=== PATIENT | male | born 1965 | race Caucasian/White ===

== ENCOUNTER 2016-08-24 12:52 | Inpatient (IN) | payer OTHER ==
--- NOTE | ~2016-08-24 | CR257 ---
[facility] A Service of [facility] RADIOLOGY TEXT RESULTS PATIENT: CHARLES LEY LOCATION: [facility] 465-01 : 66 UNIT #: [id number] AGE: [address]: Mary Steward MD SEX: M ORDER DR: [id number] [facility] [address] [facility]. [place], [place] [address] [id number] I MR#: [id number] Acc #: [id number] NAME: CHARLES LEY : 1965 SEX: M STUDY DATE/TIME: 08/24/2016 UNIT: [facility] ROOM: [facility] STUDY DESCRIPTION: CR Toe 2 Views 3Rd Rt Attending Physician: Parmjit Luz M.D. Ordering Physician: Liya Chapman Pa-C Primary Care Physician: Primary Care Physician No MEDICAL IMAGING REPORT This report is preliminary unless electronic signature is present EXAM Right toes, 08/24/2016 1239 hours. CLINICAL HISTORY Patient suffered injury on 07/21/2016 with wounds on toes which are nonhealing. Redness and pain. COMPARISON Right foot film 07/21/2016 FINDINGS AP, lateral and oblique views are performed. The overall bone density is normal. No fracture is seen in the metatarsals. There is thickening of the nails and increased soft tissue density at the distal aspect of the second and third toes where there is a subcutaneous lucency suggesting open wounds. This represents a change from the prior study. There is a lucent new defect in the distal tip of the distal phalanx of the third toe highly suspicious for osteomyelitis. No definite bony destruction is demonstrated at the second toe. IMPRESSION Soft tissue swelling of the second and third toes with lucency in the soft tissue of the distal tip of the third toe extending into lucency seen at the tuft of the distal phalanx which appears to be new. This is concerning for osteomyelitis. No definite fracture or bony destruction seen at the second toe. Dictated by... Aurora Garcia M.D. [facility] A Service of [facility] RADIOLOGY TEXT RESULTS PATIENT: CHARLES LEY LOCATION: [facility] 465-01 : [birth year] UNIT #: [id number] AGE: [address]: Mary Steward MD SEX: M ORDER DR: THIS IS AN ELECTRONICALLY VERIFIED REPORT Aurora Garcia M.D. at 08/25/2016 9:38 AM Kyler TD: 08/24/2016 20:10 JOB #: [id number] MEDICAL IMAGING REPORT Page 1 of 1 COPY
--- NOTE | ~2016-08-24 | HP ---
Unit #: [id number] #: [id number] Patient: CHARLES LEY [id number] [address] [address] [id number] MR#: [id number] NAME: CHARLES LEY ROOM: Age: 50 Sex: M Admission Date: 08/24/2016 : 1965 Attending Physician: Liya Chapman Pa-C Primary Care Physician: No Primary Care Physician HISTORY AND PHYSICAL CHIEF COMPLAINT Right foot injury. HISTORY OF PRESENT ILLNESS The patient is a 50-year-old man with a history of hypertension, chronic obstructive pulmonary disease, obstructive sleep apnea, chronic pain and seizure disorder. He presented to the emergency room with pain in the right third toe. The patient was recently discharged from the hospital a month ago with an incision and drainage of the second and fifth toe ulceration. The patient was discharged on Bactrim and recommended to follow up as an outpatient. However, the patient stated that the special forces engineer sergeant's office is [facility] and he was given an appointment on 08/05/2016. The patient could not get transportation to see the special forces engineer sergeant and has not been followed up. The patient presented to the emergency room complaining of worsening pain in the third toe. The patient had an x-ray that shows lucency in the distal third of the toe, concerning for osteomyelitis. The patients' creatinine is up to 2.2. He has been admitted for the above reasons. PAST MEDICAL HISTORY 1. History of chronic obstructive pulmonary disease. 2. Hypertension. 3. Obstructive sleep apnea. 4. Chronic back pain. PAST SURGICAL HISTORY Bronchoscopy. SOCIAL HISTORY The patient lives with his . He smokes a pack of cigarettes daily. He said that he has cut back from two packs daily. There is no alcohol or any illicit drug abuse. He is on disability. FAMILY HISTORY Positive for breast cancer in mother. ALLERGIES Morphine and tramadol. HOME MEDICATIONS 1. Combivent. 2. Gabapentin. 3. Seroquel. 4. Lopressor. Unit #: [id number] #: [id number] Patient: CHARLES LEY 5. Hydrochlorothiazide. 6. Lipitor. 7. Lisinopril. 8. Aspirin. REVIEW OF SYSTEMS Fourteen point review of systems was performed and only positive findings are described above. The remaining are negative. PHYSICAL EXAMINATION GENERAL: The patient is lying on the bed, not in acute distress. VITALS: Temperature 97.8, pulse 89, respiratory rate 14, blood pressure 196/57, saturations 100% on room air. HEENT: Atraumatic, normocephalic. Pupils equal, round and reactive to light and accommodation. Dry mucous membranes. Extraocular movements are intact. NECK: Supple. Trachea midline. LUNGS: Clear to auscultation bilaterally. HEART: Regular rate and rhythm. ABDOMEN: Soft. Positive bowel sounds. EXTREMITIES: The patient has an (1)____ on the right side distal amputation with surround erythema, cellulitis and tenderness to touch. NEUROLOGIC: Awake and oriented. No gross focal motor deficits. DIAGNOSTIC STUDIES IMAGING: X-ray of the foot shows lucency in the third distal toe, concerning for the osteomyelitis. LABORATORY: Glucose 107, BUN 24, creatinine 2.2, sodium 137, potassium 3.1. Chloride 96, bicarb 28, calcium 9.8, total protein 8.4, albumin 4.5, AST 22, ALT 13, alkaline phosphatase 64, lactic acid 1.6, INR 1. White blood cell count 8.1, hemoglobin 14.6, hematocrit 43.8, platelets 260, ESR 42, CRP 1.9. ASSESSMENT 1. OCTAVIANO. 2. Third toe wound, concerning for osteomyelitis. 3. Cellulitis. PLAN Admit the patient to observation with telemetry. Continue with IV antibiotics with Ancef. The patient has cultures from the last month with MSSA. Will reconsult podiatry for amputation or debridement of the infected toe. Repeat labs. Potassium has been replaced by the emergency room. Will continue with IV fluids, normal saline at 75 mL per hour for OCTAVIANO. Hold the hydrochlorothiazide. Further recommendations will follow. Dictated by Rivas Chakraborty TD: 08/24/2016 15:16 JOB #: [id number] Unit #: [id number] #: [id number] Patient: CHARLES LEY HISTORY AND PHYSICAL Page 1 of 1 X X HISTORY AND PHYSICAL
--- NOTE | ~2016-08-24 | EKG ---
PATIENT: CHARLES LEY UNIT #: [id number] Ventricular Rate: 71 BPM Atrial Rate: 71 BPM P-R Interval: 208 ms QRS Duration: 124 ms Q-T Interval: 408 ms QTC Calculation(Bezet): 443 ms P Carson: 66 degrees Calculated R Carson: -32 degrees Calculated T Carson: 26 degrees Diagnosis Line: Normal sinus rhythm Diagnosis Line: Left axis deviation Diagnosis Line: Left ventricular hypertrophy with QRS widening Diagnosis Line: Abnormal ECG Diagnosis Line: When compared with ECG of 21-JUL-2016 12:09, Diagnosis Line: Premature atrial complexes are no longer Present Diagnosis Line: QRS duration has increased Diagnosis Line: Confirmed by APURVA STACY MD ([id number]) on 08/27/2016 Diagnosis Line: 9:35:34 AM INTERPRETING MD: TAWANNA KANG
--- NOTE | ~2016-08-24 | US136 ---
[facility] A Service of [facility] RADIOLOGY TEXT RESULTS PATIENT: CHARLES LEY LOCATION: [facility] 465-01 : 66 UNIT #: [id number] AGE: [address]: Mary Steward MD SEX: M ORDER DR: [id number] [facility] [address] [facility]. [place], [place] [address] [id number] I MR#: [id number] Acc #: [id number] NAME: CHARLES LEY : 1965 SEX: M STUDY DATE/TIME: 08/25/2016 9:23 UNIT: [facility] ROOM: [facility] STUDY DESCRIPTION: US U/L Ext Art Study Ltd Bilat Attending Physician: Mary Steward M.D. Ordering Physician: Mary Steward M.D. Primary Care Physician: No Primary Care Physician MEDICAL IMAGING REPORT This report is preliminary unless electronic signature is present EXAM Ankle-brachial indices INDICATION 50-year-old male with hypertension. Bilateral lower extremity claudication. Ulcerations in the right foot. Open wound right foot for a few days. FINDINGS Brachial pressure is 135. The DEE on the right is 1.01 and the DEE on the left is 1.17. The toe brachial indices are 0.92 on the right and 0.95 on the left. IMPRESSION Normal ankle-brachial indices. Dictated by... Cade Castano M.D. THIS IS AN ELECTRONICALLY VERIFIED REPORT Cade Castano M.D. at 08/26/2016 8:38 AM MARTINEZ/sherice TD: 08/25/2016 15:47 JOB #: [id number] MEDICAL IMAGING REPORT Page 1 of 1 COPY
--- NOTE | ~2016-08-24 | DS ---
Unit #: [id number] #: [id number] Patient: CHARLES SHANE [id number] [address] [address] [id number] I MR#: [id number] NAME: CHARLES SHANE. ROOM: 465 Age: 50 Sex: M Admission Date: 08/24/2016 : 1965 Discharge Date: 08/27/2016 Attending Physician: Mary Steward M.D. DISCHARGE SUMMARY PRIMARY CARE PROVIDER None. PRINCIPAL DIAGNOSES 1. Osteomyelitis of right 3rd toe, distal phalanx, status post amputation, causative organism is most likely methicillin sensitive Staphylococcus aureus. 2. Acute kidney injury on chronic kidney disease, NSAID induced, discharge creatinine 1.6, baseline creatinine 1.3. 3. Right great toe ulcer with granulation. 4. Hypertension. 5. Peripheral neuropathy. 6. Tobaccoism. 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 PROCEDURES 1. Amputation of distal phalanx of right great toe. This occurred without complication. 2. X-ray of right 3rd toe on 08/24/2016 with soft tissue swelling of the 2nd and 3rd toes with lucency in the soft tissue at the distal tip of the 3rd toe concerning for osteomyelitis. 3. Bilateral lower extremity ankle-brachial indices, which were normal. 4. MRI of right foot without contrast on 08/25/2016 with soft tissue cellulitis of the distal 3rd toe. There is abnormal marrow edema and marrow replacement of the distal phalanx of the 3rd toe consistent with osteomyelitis. There is a lobulated and serpiginous cystic structure along the dorsal aspect of the 4th metatarsal, felt to be ganglion cyst. CLINICAL HISTORY AND HOSPITAL COURSE Mr. Shane is a very nice 50-year-old male, who presents to the emergency department with increasing right 3rd toe wound. Please refer to H and P for further details. X-ray of the foot was done in the emergency department. There were concerns about underlying osteomyelitis; however, I will note the patient had a normal white blood cell count and remained afebrile. He was also found to have an elevated creatinine of 2.2. He was subsequently admitted. In regard to the patient's toe osteomyelitis, he was placed on empiric vancomycin and Zosyn. White blood cell count remained normal throughout hospitalization. He remained afebrile. Orthopedics was consulted, and the patient subsequently underwent amputation of the distal phalanx of the Unit #: [id number] #: [id number] Patient: CHARLES SHANE right 3rd toe, and postoperatively, had done well with the exception of some pain. No cultures were obtained and likely would have been polymicrobial; however, the patient did have cultures of his feet done in 07/2016 revealing methicillin sensitive Staph aureus. This is most likely the causative organism. I will change him to Keflex upon discharge. In regard to the patient's acute kidney injury, he was placed on IV fluids. However, he admits to me that he was taking some NSAIDs at home, and this was most likely the cause. Creatinine has decreased to 1.6, which is very near patient's baseline, and I think creatinine can be followed up as an outpatient. The patient has otherwise remained stable. He will be discharged home later today. DISCHARGE CONDITION Stable. DISCHARGE STATUS Discharged to home. DISCHARGE MEDICATIONS Combivent nebulizer treatments 3 mL q.i.d. p.r.n. for shortness of breath; Neurontin 800 mg t.i.d.; Seroquel 50 mg at bedtime; metoprolol tartrate 25 mg b.i.d.; Lipitor 40 mg at bedtime; hydralazine 50 mg p.o. t.i.d.; aspirin 81 mg daily; Percocet 10/325 one tablet p.o. q.4 hours p.r.n. for pain, number given 60; and Keflex 500 mg p.o. t.i.d. for 5 days. For now, I am discontinuing lisinopril despite the patient's chronic kidney disease. It may have been a contributing factor in elevated creatinine, and this can be re-evaluated by primary care physician as an outpatient. DISCHARGE INSTRUCTIONS The patient is to be weightbearing as tolerated in his postop shoe on the right foot with crutches. He is to decrease his tobacco use, which he is currently working on. He should follow a heart-healthy diet. FOLLOWUP The patient will follow up Dr. Heredia in 10 to 14 days. He should follow up with the primary care physician in approximately 2 weeks and have repeat BMP at that time and re-evaluation of blood pressure. Dictated by... Mary Steward M.D. SACHIN/helen TD: 08/28/2016 06:19 JOB #: [id number] Unit #: [id number] #: [id number] Patient: CHARLES SHANE DISCHARGE SUMMARY Page 1 of 1 X Mary Steward MD X DISCHARGE SUMMARY
--- NOTE | ~2016-08-24 | MR61 ---
[facility] A Service of [place] [facility] RADIOLOGY TEXT RESULTS PATIENT: CHARLES LEY LOCATION: [facility] 465-01 : 67 UNIT #: [id number] AGE: [address]: Mary Steward MD SEX: M ORDER DR: [id number] [facility] [address] [place], [place] [address] [id number] I MR#: [id number] Acc #: [id number] NAME: CHARLES LEY : 1965 SEX: M STUDY DATE/TIME: 08/25/2016 12:40 UNIT: [facility] ROOM: [facility] STUDY DESCRIPTION: MR Foot Wo Contrast Rt Attending Physician: Mary Steward M.D. Ordering Physician: Mary Steward M.D. Primary Care Physician: No Primary Care Physician MRI CENTER REPORT This report is preliminary unless electronic signature is present. EXAM Right foot MRI without contrast 08/25/2016 HISTORY 50-year-old male with right third toe pain since 07/16/2016. Third toenail removal ER yesterday. Order states infection, evaluate for osteomyelitis. COMPARISON Right third toe x-rays 08/24/2016. TECHNIQUE Routine unenhanced multiplanar, multisequence high field MR imaging of the right forefoot was performed. FINDINGS There are postsurgical changes from removal of the third toenail. This is associated with mild soft tissue inflammation at the distal aspect of the third toe. There is abnormal marrow edema and marrow replacement in the third distal phalanx, most consistent with osteomyelitis. No drainable soft tissue fluid collection to suggest abscess. No joint effusion to suggest septic arthritis. Flexor and extensor tendons are unremarkable. Incidental note is made of a serpiginous, lobulated structure along the dorsal aspect of the fourth metatarsal. This measures approximately 1.4 x 1.7 cm in cross section and at least 6.6 cm in length. This is partially imaged and could represent a ganglion cyst versus vascular malformation. This is of uncertain clinical significance. There is mild generalized edema and diffuse fatty atrophy noted throughout the intrinsic musculature of the forefoot, likely secondary to chronic neuropathic change. IMPRESSION 1. Soft tissue cellulitis of the distal third toe. No evidence of abscess. There is abnormal marrow edema and marrow replacement in STS. [facility] A Service of [facility] RADIOLOGY TEXT RESULTS PATIENT: CHARLES LEY LOCATION: [facility] 465-01 : [birth year] UNIT #: [id number] AGE: [address]: Mary Steward MD SEX: M ORDER DR: the third distal phalanx, most consistent with osteomyelitis. No joint effusions to suggest septic arthritis. 2. Incidental note of a lobulated and slightly serpiginous cystic type structure extending along the dorsal aspect of the fourth metatarsal. This is partially imaged, but measures at least 1.7 x 1.4 cm in cross section and at least 6.6 cm in length. This could represent an elongated ganglion cyst versus vascular malformation. This is of uncertain clinical significance. Dictated by... Adeel Ron M.D. THIS IS AN ELECTRONICALLY VERIFIED REPORT Adeel Ron M.D. at 08/27/2016 7:33 AM MARSHA/kenyon TD: 08/25/2016 21:57 JOB #: [id number] MRI CENTER REPORT Page 1 of 1 COPY
--- NOTE | ~2016-08-24 | OR ---
Unit #: [id number] #: [id number] Patient: CHARLES LEY [id number] [address] [place], [place] [address] [id number] I MR#: [id number] NAME: CHARLES LEY. ROOM: 465 Date of Procedure: 08/26/2016 Admission Date: 08/24/2016 Surgeon: Maggie Heredia M.D. : 1965 Attending Physician: Mary Steward M.D. Primary Care Physician: Primary Care Physician No OPERATIVE REPORT PREOPERATIVE DIAGNOSIS Right third toe osteomyelitis. POSTOPERATIVE DIAGNOSIS Right third toe osteomyelitis. PROCEDURE PERFORMED Partial right third toe amputation ([id number]). MEDIA SERVICES DIRECTOR Edmundo. ANESTHESIA General. INDICATIONS FOR SURGERY The patient is a 50-year-old male with right foot nondiabetic neuropathy with marked clawing of his toes, who has a long history of an ulcer on the tip of his right third toe, which is now resulted in osteomyelitis of the distal phalanx of the third toe. The patient is therefore admitted for partial right third toe amputation. DESCRIPTION OF PROCEDURE The patient was taken to the operating room and placed in supine position. General anesthetic was induced. The right foot was identified as the correct operative extremity during the time-out procedure. The patient was on preoperative IV antibiotics. Therefore, the IV antibiotic protocol was not followed. The right foot was prepped and draped in the usual sterile fashion. An Esmarch was used to exsanguinate the foot, which was left wrapped around the ankle to act as a tourniquet. Dorsal and plantar fish-mouth incisions were made over the proximal interphalangeal joint. The proximal interphalangeal joint was disarticulated by dividing the collateral ligaments and extensor and flexor tendons. The toe was then sent to pathology. Due to short skin flaps and overlying skin necrosis, the proximal phalanx had to be shortened an additional 1 cm. A bone cutter was used to cut the proximal phalanx behind the flares of the condyles. The wound was then copiously irrigated. The deep tissues were closed with 3-0 Vicryl. Skin was closed with 3-0 nylon horizontal mattress sutures. Xeroform gauze dressing, sponges, Webril, Mihai wrap, and postop shoe were placed. The patient was then transported to the recovery room in stable condition. Unit #: [id number] #: [id number] Patient: CHARLES LEY ESTIMATED BLOOD LOSS Minimal. COMPLICATIONS None. SPECIMENS Right third toe. TOURNIQUET TIME Approximately 10 minutes. Dictated byRivas Santiago/helen TD: 08/27/2016 07:02 JOB #: [id number] OPERATIVE REPORT Page 1 of 1 X Jean Carlos Heredia MD X PROCEDURE OPERATIVE NOTE
--- NOTE | ~2016-08-24 | CO ---
Unit #: [id number] #: [id number] Patient: CHARLES LEY [id number] [address] [place], [place] [address] [id number] MR#: [id number] NAME: CHARLES LEY. ROOM: 465 Age: 50 Sex: M Admission Date: 08/24/2016 : 1965 Attending Physician: Mary Steward M.D. CONSULTATION REPORT REASON FOR CONSULTATION Consult is for right foot wounds, admission to hospital for right foot wounds, concern for infection and osteomyelitis. HISTORY OF PRESENT ILLNESS The patient is a 50-year-old nondiabetic male who was admitted for right foot third digit osteomyelitis and plantar hallux wound. The patient states that the wound started approximately back in mid July where he was seen here at [facility]. Local wound care was initiated at that period of time and he was subsequently discharged as an outpatient to follow up with local podiatry group. However, over last several weeks, he has missed his appointments. At this period of time, he is being evaluated at [facility] with concerning signs of deep infection and questionable osteomyelitis. At this period of time, he does not endorse any constitutional symptoms. He denies any fevers, chills, nausea, vomiting, shortness of breath, and chest pain. He is not currently on any outpatient p.o. antibiotics. PAST MEDICAL HISTORY Significant for hypertension, COPD, chronic low back pain. PAST SURGICAL HISTORY Significant for bronchoscopy. ALLERGIES To morphine and tramadol. HOME MEDICATIONS Combivent, gabapentin, Seroquel and Lopressor as well as hydrochlorothiazide, Lipitor, lisinopril, and baby aspirin. FAMILY HISTORY The patient does have a positive family history for breast cancer. SOCIAL HISTORY He lives here in [place] with his . He is a previous 6-azey-n-day tobacco smoker for approximately 30 years, but he has cut back to approximately one pack of tobacco over the last year. He denies any alcohol or illicit drug use. He currently is unemployed and is on disability. REVIEW OF SYSTEMS A 10-point review of systems was performed and negative except for pertinent positives as listed in HPI. Unit #: [id number] #: [id number] Patient: CHARLES LEY PHYSICAL EXAMINATION GENERAL: He is alert and oriented x3, in no acute distress. LUNGS: Clear to auscultation. HEART: Regular rate and rhythm. ABDOMEN: Soft, nontender, nondistended. [place] in all 4 quadrants. EXTREMITIES: Focused lower extremity examination. Dermatological: There is a full-thickness grade 4B wound to the right foot third digit with exposed phalangeal bone. There is no proximal lymphatic streaking. There is no active drainage or discharge. There is also a 3 cm x 1.5 cm x 0.2 cm grade 1A plantar wound to the right hallux. There is no active drainage or proximal lymphatic streaking associated with this particular wound. There is no sinus tracking, tunneling, or exposed subcutaneous fat, tendon or bone. Neurological: There are selective plantar areas on bilateral lower extremities where there was reduction in soft touch and epicritic sensation; however, the patient does have appropriate proprioceptive and a two-point discrimination touch present. Vascular examination, he has palpable dorsalis pedis and posterior tibial pulses bilaterally. Negative Homans sign bilaterally. Musculoskeletal: Ankle dorsiflexion and plantar flexion intact. He does have underlying claw toe deformities with distal calluses present at the [facility]. DIAGNOSTIC STUDIES LABORATORY RESULTS: His A1c is 5.4. White count of 8, hemoglobin of 12.8, platelets of 226. ESR is 32. His UA was negative. Blood cultures were negative. ABIs: His right lower extremity ankle is 1.01, his toe is 0.92. His left lower extremity at the ankle is 1.17, his left is 0.95. IMAGING STUDIES: X-rays demonstrate lytic and cortical destruction consistent with osteomyelitis to the right foot distal and middle phalanges. There is no evidence of any soft tissue gas or emphysema noted in the soft tissue planes. MRI demonstrates marrow replacement, signal changes on T1 consistent with osteomyelitis of the right foot third digit and distal middle phalanges. No evidence of any soft tissue gas or deep abscess is noted. ASSESSMENT AND PLAN The patient is a 50-year-old nondiabetic male who has a history of grade 4B right foot third distal toe wound with underlying osteomyelitis as well as grade 1A plantar hallux wound that does not appear to be clinically infected at this period of time. The patient was admitted. He is on clindamycin and Zosyn at this period of time. He has no leukocytosis. There is no evidence of any acute surgical intervention based off his x-rays and MRIs at this period of time. The patient will likely need a right foot partial third digit toe amputation for eradication of the underlying wound and osteomyelitis. He is going to be weightbearing as tolerated to the right lower extremity at this period of time in a postoperative shoe. We will discuss with attending Dr. Heredia, when a surgical OR suite can be scheduled for the case. We will discuss that with the primary team. At this period of time, he can continue with the diet, continue with IV fluids. We will discuss with primary team when the surgery will be scheduled and we will make the patient n.p.o. at that period of time. Unit #: [id number] #: [id number] Patient: CHARLES LEY Laura Dictated by... Hunter Esparza M.D. for Rivas Diamond/helen TD: 08/27/2016 01:39 JOB #: [id number] CONSULTATION REPORT Page 1 of 1 X X CONSULTATION REPORT
[2016-08-24 12:30] LABS: BASOPHIL# 0.1 X10e3 (0-0.3); BASOPHIL% 1.2 % (0-2.5); EOSINOPHIL# 0.1 X10e3 (0-0.7); EOSINOPHIL% 1.7 % (0.0-7.0); HEMATOCRIT 43.8 % (38.0-50.0); HEMOGLOBIN 14.6 gm/dL (13.0-16.0); LYMPHOCYTE# 1.6 X10e3 (1.0-3.5); LYMPHOCYTE% 19.4 % (17.0-45.0); MEAN CELL VOLUME 82.7 FL (83-96); MEAN CORPUSCULAR HEMOGLOBIN 27.5 PG (28-34); MEAN CORPUSCULAR HGB CONC 33.3 g/dL (30-36); MEAN PLATELET VOLUME 9.6 FL (6.5-11.5); MONOCYTE# 0.7 X10e3 (0-1.0); MONOCYTE% 8.7 % (3.0-12.0); NEUTROPHIL# 5.6 X10e3 (1.5-7.1); PLATELET COUNT 260 X10e3 (140-420); RED BLOOD COUNT 5.29 X10e (3.90-5.60); WHITE BLOOD COUNT 8.1 X10e3 (4.0-10.5)
[2016-08-24 12:31] LABS: DIFF IND NO
[~2016-08-24 12:52] MED LIST: ADVAIR 250-501 EACH; ADVAIR 500-501 EACH IH; ADVAIR 5001 DISK W/D; ALBUTEROL17 GM; ALBUTEROL17 GM INH; ALPRAZOLAM; AMBIEN; AMLODIPINE BESYL5 MG PO; ASPIRIN81 MG PO; BACTRIM DS TABL1 TA1 PO; BP MED PO; COMBIVENT U/D3 M2 INH; DELTASONE20 MG PO; DICLOFENAC PO; FLEXERIL PO; FLEXERIL10 MG PO; GABAPENTIN400 M2 PO; HCTZ PO; HYDROCHLOROTHIA25 MG PO; HYDROCODON-ACE1 EAC4; HYDROCODON-ACE1 EAC7 PO; HYDROCODONE-A1 UDTA2 PO; IBUPROFEN PO; IMITREX; KEPPRA500 M2 PO; LIPITOR40 MG PO; LISINOPRIL PO; LISINOPRIL20 MG PO; LOPRESSOR PO; LORTAB 10-5001 EACH PO; NEURONTIN; NEURONTIN PO; NEURONTIN800 MG PO; NO MEDICATIONS; OMEPRAZOLE40 MG PO; PERCOCET10 PO; PERCOCET5/325 PO; PHENERGAN; SEROQUEL25 MG PO; SEROQUEL50 M1 PO; TEMAZEPAM; TENORETIC 100 T1 TAB; TENORETIC 100 T1 TAB PO; TOPAMAX; VICODIN PO; VOLTAREN75 MG PO; XANAX2 MG PO; ZANAFLEX PO; ZANAFLEX4 M1 PO; ZOMIG ZMT5 MG/TAB PO
[2016-08-24 12:54] LABS: ALBUMIN SERUM 4.5 g/dL (3.5-5.0); BILIRUBIN,TOTAL 0.6 mg/dL (0.2-2.0); BUN/CREATININE RATIO 10.9; CALCIUM SERUM 9.8 mg/dL (8.4-10.2); CREATININE SERUM 2.2 mg/dL (0.6-1.4); POTASSIUM 3.1 mmol/L (3.5-5.1); PROTEIN TOTAL SERUM 8.4 g/dL (6.0-8.3)
[2016-08-25 03:48] LABS: BASOPHIL# 0.1 X10e3 (0-0.3); BASOPHIL% 1.3 % (0-2.5); EOSINOPHIL# 0.2 X10e3 (0-0.7); EOSINOPHIL% 2.2 % (0.0-7.0); HEMATOCRIT 38.8 % (38.0-50.0); HEMOGLOBIN 12.8 gm/dL (13.0-16.0); LYMPHOCYTE# 2.9 X10e3 (1.0-3.5); MEAN CELL VOLUME 83.5 FL (83-96); MEAN CORPUSCULAR HEMOGLOBIN 27.4 PG (28-34); MEAN CORPUSCULAR HGB CONC 32.8 g/dL (30-36); MEAN PLATELET VOLUME 9.8 FL (6.5-11.5); MONOCYTE# 0.7 X10e3 (0-1.0); MONOCYTE% 8.4 % (3.0-12.0); NEUTROPHIL# 4.1 X10e3 (1.5-7.1); NEUTROPHIL% 52.1 % (40-75); PLATELET COUNT 226 X10e3 (140-420); RED BLOOD COUNT 4.65 X10e (3.90-5.60); RED CELL DISTRIBUTION WIDTH 13.6 % (11.0-15.5)
[2016-08-25 03:49] LABS: DIFF IND NO
[2016-08-25 04:12] LABS: BUN/CREATININE RATIO 10.45; CALCIUM SERUM 8.9 mg/dL (8.4-10.2); CREATININE SERUM 2.2 mg/dL (0.6-1.4); POTASSIUM 3.7 mmol/L (3.5-5.1)
[2016-08-25 14:07] LABS: URINE APPEARANCE CLEAR; URINE BILIRUBIN NEG (NEG); URINE BLOOD NEG (NEG); URINE COLOR YELLOW; URINE GLUCOSE NEG (NEG); URINE KETONE NEG (NEG); URINE LEUKOCYTE ESTERASE NEG (NEG); URINE NITRATE NEG (NEG); URINE PROTEIN NEG (NEG); URINE SPECIFIC GRAVITY 1.026 (1.003-1.035); URINE UROBILINOGEN 0.2 MG/DL (NEG)
[2016-08-26 05:42] LABS: BUN/CREATININE RATIO 11.66; CALCIUM SERUM 8.8 mg/dL (8.4-10.2); CREATININE SERUM 1.8 mg/dL (0.6-1.4); GLOM FILT RATE Estimated 42.8 mL/min (>60); POTASSIUM 3.1 mmol/L (3.5-5.1)
[2016-08-27 04:38] LABS: BUN/CREATININE RATIO 13.75; CALCIUM SERUM 8.4 mg/dL (8.4-10.2); CREATININE SERUM 1.6 mg/dL (0.6-1.4); GLOM FILT RATE Estimated 49.9 mL/min (>60)
[2016-08-27] MEDS ORDERED: PERCOCET10 PO (14:57)
[2016-08-27] MEDS ORDERED: HYDRALAZINE HCL50 MG PO (14:58)
[2016-08-27] MEDS ORDERED: KEFLEX500 MG PO (14:59)
== END 2016-08-27 15:00 | disposition home or self-care (01) | DRG 504 ==
LOC: CED 12:52 → CEDOF 14:51 → C4C 17:30
PROVIDERS: Internal Medicine; Orthopaedic Surgery; Physician Assistant Medical
PROC: 0Y6T0Z1 Detachment at Right 3rd Toe, High, Open Approach (ICD-10-PCS; principal; 2016-08-26 17:30)
DX: M86.8X7 Other osteomyelitis, ankle and foot (principal); N17.9 Acute kidney failure, unspecified; N18.3 Chronic kidney disease, stage 3 (moderate); G62.9 Polyneuropathy, unspecified; F17.210 Nicotine dependence, cigarettes, uncomplicated; I12.9 Hypertensive chronic kidney disease with stage 1 through stage 4 chronic kidney disease, or unspecified chronic kidney disease; L03.031 Cellulitis of right toe
CPT/HCPCS: 36415; 73660; 73718; 80048; 80053; 81003; 83036; 83605; 85025; 85652; 87040; 88305; 88311; 93005; 93922; 94760; 96361; 96374; 99285; J0330; J0690; J1170; J1650; J2250; J2405; J2543; J3010

== ENCOUNTER 2017-01-18 15:13 | Emergency (ER) | payer OTHER ==
[~2017-01-18] VITALS: Ht 190.5 cm; Wt 117.9 kg
--- NOTE | ~2017-01-18 | CR255 ---
[facility] A Service of [facility] RADIOLOGY TEXT RESULTS PATIENT: CHARLES LEY LOCATION: [facility] : [birth year] UNIT #: [id number] AGE: [address]: Emery Huynh DO SEX: M ORDER DR: [id number] [facility] [address] [place], [place] [address] [id number] MR#: [id number] Acc #: [id number] NAME: CHARLES LYE : 1965 SEX: M STUDY DATE/TIME: 01/18/2017 18:46 UNIT: [facility] ROOM: STUDY DESCRIPTION: CR Toe 2 Views 2Nd Rt Attending Physician: Emery Huynh D.O. Ordering Physician: Emery Huynh D.O. Primary Care Physician: Marlena Nava M.D. MEDICAL IMAGING REPORT This report is preliminary unless electronic signature is present EXAM Right second toe 3 views HISTORY Toe infection, pain and redness today. FINDINGS 3 views of the right second toe demonstrate satisfactory bone alignment. No fracture or bone destruction. Soft tissue swelling of the toe tip. 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 Dictated by... Salvador Krishnamurthy M.D. THIS IS AN ELECTRONICALLY VERIFIED REPORT Salvador Krishnamurthy M.D. at 01/19/2017 6:24 PM ANNA/nohemi TD: 01/19/2017 00:49 JOB #: [id number] MEDICAL IMAGING REPORT Page 1 of 1 COPY
[~2017-01-18 15:13] MED LIST changes: +HYDRALAZINE HCL50 MG PO; +KEFLEX500 MG PO
[2017-01-18 17:35] LABS: BASOPHIL# 0.1 X10e3 (0-0.3); BASOPHIL% 0.9 % (0-2.5); EOSINOPHIL# 0.1 X10e3 (0-0.7); EOSINOPHIL% 1.3 % (0.0-7.0); HEMATOCRIT 42.5 % (38.0-50.0); HEMOGLOBIN 14.4 gm/dL (13.0-16.0); LYMPHOCYTE# 1.9 X10e3 (1.0-3.5); LYMPHOCYTE% 17.4 % (17.0-45.0); MEAN CELL VOLUME 88.5 FL (83-96); MEAN CORPUSCULAR HEMOGLOBIN 29.9 PG (28-34); MEAN CORPUSCULAR HGB CONC 33.8 g/dL (30-36); MEAN PLATELET VOLUME 9.3 FL (6.5-11.5); MONOCYTE# 0.5 X10e3 (0-1.0); MONOCYTE% 4.6 % (3.0-12.0); NEUTROPHIL# 8.3 X10e3 (1.5-7.1); NEUTROPHIL% 75.8 % (40-75); PLATELET COUNT 247 X10e3 (140-420); RED CELL DISTRIBUTION WIDTH 13.9 % (11.0-15.5)
[2017-01-18 17:37] LABS: DIFF IND NO
[2017-01-18 18:01] LABS: ALBUMIN SERUM 4.7 g/dL (3.5-5.0); BILIRUBIN,TOTAL 0.5 mg/dL (0.2-2.0); BUN/CREATININE RATIO 13.84; CALCIUM SERUM 9.6 mg/dL (8.4-10.2); CREATININE SERUM 1.3 mg/dL (0.6-1.4); GLOM FILT RATE Estimated 63.6 mL/min (>60); POTASSIUM 3.2 mmol/L (3.5-5.1); PROTEIN TOTAL SERUM 7.8 g/dL (6.0-8.3)
== END 2017-01-18 21:34 | disposition home or self-care (01) ==
LOC: CED 15:13
PROVIDERS: Emergency Medicine
DX: S91.104A Unspecified open wound of right lesser toe(s) without damage to nail, initial encounter (principal); L08.9 Local infection of the skin and subcutaneous tissue, unspecified; I10 Essential (primary) hypertension; E78.5 Hyperlipidemia, unspecified; F41.9 Anxiety disorder, unspecified; J44.9 Chronic obstructive pulmonary disease, unspecified; G47.33 Obstructive sleep apnea (adult) (pediatric); F17.200 Nicotine dependence, unspecified, uncomplicated; Z98.890 Other specified postprocedural states; Z88.5 Allergy status to narcotic agent; Z79.899 Other long term (current) drug therapy; X58.XXXA Exposure to other specified factors, initial encounter
CPT/HCPCS: 29405; 73660; 80053; 85025; 96365; 96375; 96376; 99284; J1170